=== PATIENT | female | born 1990 | race Caucasian/White ===

== ENCOUNTER 2021-11-27 20:44 | Emergency (ER) | payer SELFPAY ==
[2021-11-27 21:20] VITALS: O2SAT 95
[2021-11-27 21:21] VITALS: BP 123/73; PULSE 122; RESP 18; TEMP 38.9; O2SAT 99; BMI 32.3
--- NOTE | 2021-11-27 21:36 | ED.GENADULT ---
HPI - General Adult General Time Seen by Provider: 21:36 Date Seen: 11/27/21 Chief complaint: Fever Stated complaint: Fever Sore Throat Time Seen by Provider: 11/27/21 21:16 Source: patient and RN notes reviewed Mode of arrival: ambulatory Limitations: no limitations History of Present Illness HPI narrative: Celeste is a 31-year-old female coming in with increasing right-sided sore throat and fevers. She has had body aches. She does work in long-term care and tested negative for COVID yesterday. She last took 2 Advil about 2:00 p.m. today. She wanted to see what would happen after that. The right side of her throat is getting progressively worse. She has had history of strep a couple times when she was younger but nothing recent. There is no other respiratory symptoms with this. She can still swallow. They were attempting and she would have just ovulated, doubts that there is a chance for at this time. Confirmed with her that we will confirm negative test, did discuss with her my thought of her needing a soft tissue neck CT. She was in agreement with that. Related Data Home Medications Medication Instructions Recorded Confirmed prenat.vits,brenden,[id number] 1 tab PO QDAY 11/14/21 11/14/21 Previous Rx's Medication Instructions Recorded medroxyprogesterone 10 mg tablet 10 mg PO DAILY #10 tabs 11/14/21 amoxicillin 875 mg-potassium 1 tab PO BID #20 tabs 11/27/21 clavulanate 125 mg tablet Allergies Allergy/AdvReac Type Severity Reaction Status Date / Time No Known Drug Allergies AdvReac Uncoded 11/14/21 14:32 Review of Systems Status of ROS: Reports: 6 or more systems reviewed and unremarkable except as noted in History and below [facility] Medical History (Updated 11/27/21 @ 23:55 by Yancy Del Rio MD) Irregular menstrual cycle Spherocytosis Surgical History (Updated 11/20/21 @ 17:27 by Rosana Thibodeaux MD) History of cholecystectomy (06/2013) 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) Family History (Updated 11/20/21 @ 17:28 by Rosana Thibodeaux MD) Aunt Breast cancer Social History (Updated 11/20/21 @ 17:29 by Rosana Thibodeaux MD) Narrative: , nursing home director Highest level of school completed/degree received: high school graduate Physical activity type: walking and weight lifting How many days of moderate to strenuous exercise, like a brisk walk, did you do in the last 7 days: 4 Smoking Status: Never smoker How often do you have a drink containing alcohol: never AUDIT-C Alcohol total score: 0 Non-prescribed substance use: denies use Do you think of yourself as: straight/heterosexual Gender Identity: female Are you currently sexually active: Yes In the past 12 months, how many sex partners have you had: one Exam Const: Vital Signs, click to edit/add: Vital Signs - 24 hr 11/27/21 21:21 11/27/21 21:53 11/27/21 21:20 Temperature 102.1 F H 102.1 F H Pulse Rate [Pulse Oximeter] 122 H Respiratory Rate 18 Blood Pressure [Le ft Upper Arm] 123/73 Pulse Oximetry 99 95 Oxygen Delivery Me thod 11/27/21 23:00 11/27/21 23:46 Temperature 99.8 F H 99.3 F Pulse Rate [Pulse Oximeter] 110 H Respiratory Rate 21 Blood Pressure [Le ft Upper Arm] 131/76 Pulse Oximetry 95 Oxygen Delivery Me thod Room Air Documenting provider has reviewed patient's vital signs: yes Common normals: no apparent distress, average body habitus, oriented x3, no limitations and alert General appearance: cooperative, comfortable and ill appearing Other: Cheeks and facial flushing due to fever, no rash HENMT: Common normals: normocephalic, head/scalp atraumatic, hearing grossly normal bilaterally, external ears normal, EAC's normal, TM's normal bilaterally, external nose normal, nasal mucous membranes and turbinates normal, moist oral mucous membranes, dentition normal and gingiva normal Head and scalp: normocephalic and atraumatic Nose: external nose normal and nasal mucous membranes and turbinates normal External ear: external ears normal External auditory canal: EAC's normal Tympanic membrane: TM's normal bilaterally Other: Mild erythema that is symmetric, uvula was not swollen there is still good oral airway. Do not note that the right tonsil seems larger than the left, both have mild erythema. Eye: Common normals: PERRL, EOMs intact bilaterally, conjunctivae normal and no scleral icterus Conjunctiva: conjunctiva(e) normal Pupil: PERRL Neck & C-Spine: Common normals: full ROM, no lymphadenopathy, supple, no meningeal signs, no JVD and thyroid normal Thyroid: thyroid normal Resp: Common normals: normal respiratory effort, no retractions, no use of accessory muscles and clear to auscultation bilaterally Auscultation: clear to auscultation bilaterally Cardio: Common normals: no JVD, regular rhythm, S1 normal heart sound, S2 normal heart sound, no gallops, no clicks and no murmurs Rate: tachycardic Rhythm: regular rhythm Heart sounds: S1 normal and S2 normal GI: Common normals: Normal to inspection, nondistended, normoactive bowel sounds present, soft to palpation, non-tender, no hepatosplenomegaly and no masses Palpation: soft and no hepatosplenomegaly Neuro: Common normals: oriented x3 Sensorium/orientation: alert Meningeal signs: no meningeal signs Speech: speech normal Gait (neuro): normal gait Course Course Hospital Course: We are going to establish an IV, start a L of IV fluids and get her some Tylenol 1000 mg to help control her fever. We will get appropriate labs, will get a screening COVID again just in case she has a peritonsillar abscess that would need to go to the OR. Will look it strep as well as mono. Will be obtaining a soft tissue neck CT as well. Right now she is hemodynamically stable despite being febrile and tachycardic with a fever. Will work on fever control and see if her tachycardia does eufemia some. She at this point certainly could have a peritonsillar abscess, tonsillitis. Reevaluation(s) Reevaluation #1: Patient was given copy of her CT report. Reviewed with her that I feel that this is likely infectious driven. Reviewed the lymphadenitis that we can typically see in children but not necessarily a in adults that often. I have initiated Unasyn 3 g IV for her. I think we can have her try a oral antibiotics outpatient after that. She does not have a primary outside of women's health. I have talked to her about potentially following up with Dr. Keita our ENT. Time: 23:52 Vital Signs Vital signs: Initial Vital Signs Temperature Source Temporal Artery Scan 09/21/22 21:20 Pulse Oximetry 95 11/27/21 21:20 Sepsis Recent Fever Within 48 Hours Yes 11/27/21 21:20 Sepsis Action Taken by Nursing No Action Required 11/27/21 21:20 Vital Signs Pulse Oximetry 95 11/27/21 21:20 Temperature 99.3 F 11/27/21 23:46 Pulse Rate 110 H 11/27/21 23:00 Respiratory Rate 21 11/27/21 23:00 Blood Pressure 131/76 11/27/21 23:00 Pulse Oximetry 95 11/27/21 23:00 Oxygen Delivery Method 11/27/21 23:00 Medical Decision Making Lab Data Lab results reviewed: Yes I reviewed the patient's lab results Labs: Lab Results 11/27/21 11/27/21 11/27/21 Range/Units 21:50 21:50 21:50 WBC 13.71 H (4.50-11.00) K/uL RBC 4.61 (4.00-5.20) m/uL Hgb 14.8 (12.0-16.0) gm/dL Hct 41.9 (33.0-51.0) % MCV 91 (80-100) fL MCH 32 (26-34) pg MCHC 35 (32-36) gm/dL RDW Coeff of Shelbie 11.1 L (11.5-15.5) % Plt Count 486 H (140-440) K/uL Neut % (Auto) 75.0 H (42.0-72.0) % Lymph % (Auto) 8.5 L (20-44) % Tripp % (Auto) 15.2 H (0.0-11.0) % Eos % (Auto) 0.4 (0.0-7.0) % Baso % (Auto) 0.5 (0.0-3.0) % Neut # (Auto) 10.30 H (1.7-7.0) K/uL Lymph # (Auto) 1.20 (0.90-2.90) K/uL Tripp # (Auto) 2.10 H (0.00-0.90) K/UL Eos # (Auto) 0.10 (0.00-0.50) K/uL Baso # (Auto) 0.10 (0.00-0.30) K/uL Abs Immat Gran (auto) 0.06 (0.00-0.30) K/uL Sodium 137 (135-149) mmol/L Potassium 3.8 (3.6-5.1) mmol/L Chloride 102 (96-114) mmol/L Carbon Dioxide 24 (20-32) mmol/L BUN 13 (5-24) mg/dL Creatinine 0.5 (0.5-1.5) mg/dL Estimated Creat Clear 155.42 Estimated GFR 130 ml/min Glucose 106 (60-115) mg/dL Calcium 9.2 (8.4-10.6) mg/dL C-Reactive Protein 3.5 H (0.5-1.0) mg/dL HCG, Qual Negative (Negative) SARS-CoV-2 (PCR) (Negative) Monoscreen Negative (Negative) Group A Strep DNA (No Detected) 11/27/21 11/27/21 Range/Units 21:50 21:50 WBC (4.50-11.00) K/uL RBC (4.00-5.20) m/uL Hgb (12.0-16.0) gm/dL Hct (33.0-51.0) % MCV (80-100) fL MCH (26-34) pg MCHC (32-36) gm/dL RDW Coeff of Shelbie (11.5-15.5) % Plt Count (140-440) K/uL Neut % (Auto) (42.0-72.0) % Lymph % (Auto) (20-44) % Tripp % (Auto) (0.0-11.0) % Eos % (Auto) (0.0-7.0) % Baso % (Auto) (0.0-3.0) % Neut # (Auto) (1.7-7.0) K/uL Lymph # (Auto) (0.90-2.90) K/uL Tripp # (Auto) (0.00-0.90) K/UL Eos # (Auto) (0.00-0.50) K/uL Baso # (Auto) (0.00-0.30) K/uL Abs Immat Gran (auto) (0.00-0.30) K/uL Sodium (135-149) mmol/L Potassium (3.6-5.1) mmol/L Chloride (96-114) mmol/L Carbon Dioxide (20-32) mmol/L BUN (5-24) mg/dL Creatinine (0.5-1.5) mg/dL Estimated Creat Clear Estimated GFR ml/min Glucose (60-115) mg/dL Calcium (8.4-10.6) mg/dL C-Reactive Protein (0.5-1.0) mg/dL HCG, Qual (Negative) SARS-CoV-2 (PCR) Negative SARS-CoV-2 (Negative) Monoscreen (Negative) Group A Strep DNA NOT DETECTED (No Detected) Imaging Data CT- Other: Attestation: I have reviewed the pertinent imaging results. Radiologist's impression: Patient: CELESTE TURNER Facility:?[facility] Patient ID:?[id number] Site Patient ID:?[id number]. Site :?[id number] Study:?CT ST Neck W/ISOVUE 370 96CC-11/27/2021 11:02:37 PM Ordering Physician:Sheryl Haines Final Report: INDICATION: Fever and sore throat. TECHNIQUE: CT soft tissue of the neck was acquired with 96 cc Isovue 370 IV contrast. COMPARISON: None. FINDINGS: Skull base: Unremarkable. Pharynx/Larynx/Trachea: Epiglottis is normal. Airway is patent. Adjacent soft tissues are normal. Salivary glands: Unremarkable. Thyroid gland: Unremarkable. No significant nodules. Lymph nodes: Level I, II, and III lymphadenopathy with the largest lymph node measuring 2.0 x 1.7 cm in the right level IIa station. Vessels: Unremarkable for age. Bones: Unremarkable for age. Misc: No inflammation, mass or fluid collection. Lung apices: Unremarkable. IMPRESSION: 1. Level I, II, and III lymphadenopathy, nonspecific with some lymph nodes larger than expected for being reactive. Recommend short term follow-up CT neck to exclude underlying lymphoproliferative disorder. 2. No inflammation, mass or fluid collection. Please note that all CT scans at this facility use dose modulation, iterative reconstruction, and/or weight-based dosing when appropriate to reduce radiation dose to as low as reasonably achievable. Dictated by Aayush Finnegan MD @ 11/27/2021 11:18:13 PM (Electronic Signature) Critical Care Time Critical Care Time Critical Care Time: No Discharge Plan Discharge Clinical Impression: Acute lymphadenitis of neck Condition: Stable Instructions: Lymphadenopathy (ED), Adenitis (ED) Additional Instructions: Recommend contacting clinic and see if you can be added to Dr. Keita's schedule this week, let them know this is requested by the ED. Tylenol and or ibuprofen per bottle directions as needed for fever and pain control. Start oral antibiotic tomorrow morning and take as prescribed. If you feel you are worsening in any point, not improving over the next 24-48 hours with oral outpatient antibiotics, do need to seek re-evaluation. Activity Level: Activity as Tolerated Prescriptions: New amoxicillin-pot clavulanate 875-125 mg tablet 1 tab PO BID Qty: 20 0RF No Action prenat.vits,brenden,[id number] Tablet 1 tab PO QDAY medroxyprogesterone 10 mg tablet 10 mg PO DAILY Qty: 10 7RF Rx Instructions: 10 DAYS/MONTH DIRECTED Follow Up/Referrals: Provider,Not a Local [Primary Care Provider] - Stand Alone Forms: [employer] Info Instructions
--- NOTE | 2021-11-27 21:45 | CRLHL7_ITS ---
For Patients: As a result of the Century Cures Act, medical imaging exams and procedure reports are released immediately into your electronic medical record. You may view this report before your referring provider. If you have questions, please contact your health care provider. INDICATION: Fever and sore throat. TECHNIQUE: CT soft tissue of the neck was acquired with 96 cc Isovue 370 IV contrast. COMPARISON: None. FINDINGS: Skull base: Unremarkable. Pharynx/Larynx/Trachea: Epiglottis is normal. Airway is patent. Adjacent soft tissues are normal. Salivary glands: Unremarkable. Thyroid gland: Unremarkable. No significant nodules. Lymph nodes: Level I, II, and III lymphadenopathy with the largest lymph node measuring 2.0 x 1.7 cm in the right level IIa station. Vessels: Unremarkable for age. Bones: Unremarkable for age. Misc: No inflammation, mass or fluid collection. Lung apices: Unremarkable. IMPRESSION: 1. Level I, II, and III lymphadenopathy, nonspecific with some lymph nodes larger than expected for being reactive. Recommend short term follow-up CT neck to exclude underlying lymphoproliferative disorder. 2. No inflammation, mass or fluid collection. Please note that all CT scans at this facility use dose modulation, iterative reconstruction, and/or weight-based dosing when appropriate to reduce radiation dose to as low as reasonably achievable. Dictated by Aayush Finnegan MD @ 11/27/2021 11:18:13 PM (Electronically Signed)
[2021-11-27 21:53] VITALS: TEMP 38.9
[2021-11-27] MEDS: ACETAMINOPHEN 500 MG TABLET 1000 MG PO (21:53)
[2021-11-27] MEDS: 0.9 % SODIUM CHLORIDE 1000 ml 1,000 ML IV (21:54)
[2021-11-27 22:01] LABS: Basophils Percent Auto 0.5 % (0.0-3.0); Eosinophils Percent Auto 0.4 % (0.0-7.0); Hematocrit 41.9 % (33.0-51.0); Hemoglobin* 14.8 gm/dL (12.0-16.0); Immature Granulocytes Abs Auto 0.06 K/uL (0.00-0.30); Lymphocytes Percent Auto 8.5 % (20-44); Mean Corpuscular HGB Conc 35 gm/dL (32-36); Mean Corpuscular Hemoglobin 32 pg (26-34); Mean Corpuscular Volume 91 fL (80-100); Monocytes Percent Auto 15.2 % (0.0-11.0); Platelet Count* 486 K/uL (140-440); RDW Coefficient of Variation % 11.1 % (11.5-15.5); Red Blood Count 4.61 m/uL (4.00-5.20); White Blood Count* 13.71 K/uL (4.50-11.00)
[2021-11-27 22:03] LABS: Slide Review Reflex No
[2021-11-27 22:10] LABS: Mono Screen* Negative (Negative)
[2021-11-27 22:13] LABS: Chloride* 102 mmol/L (96-114); Sodium* 137 mmol/L (135-149)
[2021-11-27 22:14] LABS: Potassium* 3.8 mmol/L (3.6-5.1)
[2021-11-27 22:16] LABS: Creatinine* 0.5 mg/dL (0.5-1.5); Est. Creatinine Clearance* 155.42; Estimated Glomerular Filt Rate 130 ml/min
[2021-11-27 22:17] LABS: Blood Urea Nitrogen* 13 mg/dL (5-24); Calcium* 9.2 mg/dL (8.4-10.6); Carbon Dioxide* 24 mmol/L (20-32); Glucose* 106 mg/dL (60-115)
[2021-11-27 22:20] LABS: C Reactive Protein* 3.5 mg/dL (0.5-1.0)
[2021-11-27 22:25] LABS: Strep A DNA Probe* NOT DETECTED (No Detected)
[2021-11-27 22:31] LABS: HCG Qualitative Serum* Negative (Negative)
[2021-11-27 22:34] LABS: SARS PCR* Negative SARS-CoV-2 (Negative)
[2021-11-27 23:00] VITALS: BP 131/76; PULSE 110; RESP 21; TEMP 37.7; O2SAT 95
[2021-11-27 23:46] VITALS: TEMP 37.4
[2021-11-27] MEDS: AMPICILLIN/SULBACTAM 3 GM in 0.9 % SODIUM CHLORIDE Mini-bag 100 ML IVPB (23:54)
== END 2021-11-28 00:30 | disposition home or self-care (01) ==
PROVIDERS: Emergency Provider Family Medicine
DX: L04.0 Acute lymphadenitis of face, head and neck (principal)
CPT/HCPCS: 36415; 70491; 80048; 84703; 85025; 86140; 86308; 87635; 87651; 94761; 96361; 96374; 99284; A9270; J0295; J7030; Q9967

== ENCOUNTER 2023-09-02 13:37 | Outpatient (CLI) | payer BC, SELFPAY | END 2023-09-02 13:38 | disposition home or self-care (01) | LOC: NFLDREF 09-08 18:29 | PROVIDERS: Visit Provider Physician Assistant | DX: N97.0 Female infertility associated with anovulation (principal) | CPT/HCPCS: 84144 ==

== ENCOUNTER 2023-09-14 14:10 | Outpatient (CLI) | payer BC, SELFPAY | END 2023-09-14 14:11 | disposition home or self-care (01) | LOC: NFLDREF 18:56 | PROVIDERS: Visit Provider Physician Assistant | DX: N97.0 Female infertility associated with anovulation (principal) | CPT/HCPCS: 80061; 82670; 83001; 83002; 83498; 83520; 84146; 84270; 84402; 84403 ==

== ENCOUNTER 2023-09-30 12:05 | Outpatient (CLI) | payer BC, SELFPAY ==
--- NOTE | 2023-09-30 12:15 | CRLHL7_ITS ---
For Patients: As a result of the Century Cures Act, medical imaging exams and procedure reports are released immediately into your electronic medical record. You may view this report before your referring provider. If you have questions, please contact your health care provider. INDICATION: FEMALE INFERTILITY ASSOCIATED WITH ANOVULATION COMPARISON: none TECHNIQUE: 2D laureano scale and color Doppler images were acquired of the pelvis using a transabdominal and transvaginal approach. FINDINGS: Sonographic images demonstrate a normal size and smooth outer contour of the uterus. Uterus measures 6.6 cm in length by 2.7 cm in AP diameter by 5.6 cm in transverse dimension. The myometrium has a normal uniform echotexture. The endometrial lining appears normal and measures 7 mm in composite thickness. The right ovary measures 4.2 x 2.2 x 3.2 cm in size and the left ovary measures 5.7 x 2.2 x 4.1 cm. Right ovarian volume 15.4 cc. Left ovarian volume 26.6 cc. Multiple ovarian follicles are present. The ovaries demonstrate normal arterial and venous blood flow on color Doppler analysis. There are no suspicious fluid collections within the cul-de-sac. IMPRESSION: PCOS appears to be present. Dictated by Gilbert Faulkner MD @ 10/02/2023 1:24:32 PM (Electronically Signed)
== END 2023-09-30 12:06 | disposition home or self-care (01) ==
LOC: US 12:06
PROVIDERS: Visit Provider Physician Assistant
DX: N97.0 Female infertility associated with anovulation (principal); E28.2 Polycystic ovarian syndrome; R79.89 Other specified abnormal findings of blood chemistry
CPT/HCPCS: 76830; 76856